=== PATIENT | female | born 1985 | race Caucasian/White ===

== ENCOUNTER → 2020-06-22 10:42 | Outpatient (CLI) | payer BC, SELFPAY ==
--- NOTE | 2020-06-22 10:51 | XR_ITS ---
PROCEDURE: XR KNEE LT 4V CLINICAL INDICATION: LT KNEE PAIN COMPARISON: No exams were available for comparison FINDINGS: No fracture or dislocation. No lytic or blastic change. There is normal mineralization. The joint spaces are well-preserved. No significant degenerative/arthritic changes. No erosive changes evident. Other findings:None. IMPRESSION: No acute findings. Dictated by: Dr. Gilles Alab MD 06/22/2020 11:57 Dr. Gilles Alba MD in [place] 06/22/2020 11:57
== END ==
PROVIDERS: PCP Family Medicine; Visit Provider Family Medicine
DX: M25.562 Pain in left knee (principal)
CPT/HCPCS: 73564

== ENCOUNTER 2021-09-10 08:24 | Emergency (ER) | payer BC, SELFPAY ==
[2021-09-10 08:25] VITALS: BP 131/81; PULSE 82; RESP 20; TEMP 37; O2SAT 94; BMI 33.3
--- NOTE | 2021-09-10 08:35 | XR_ITS ---
PROCEDURE INFORMATION: Exam: XR Chest Exam date and time: 09/10/2021 8:35 AM Age: 36 years old Clinical indication: Shortness of breath; Additional info: SOB, chest tightness TECHNIQUE: Imaging protocol: XR of the chest. Views: 2 views. COMPARISON: No relevant prior studies available. FINDINGS: Lungs: Relative lucency within the upper lung zones. Small patchy adjacent to but not obscuring the right heart border. No lobar consolidation. Pleural spaces: Unremarkable. No pleural effusion. No pneumothorax. Heart/Mediastinum: Unremarkable. Bones/joints: Unremarkable. IMPRESSION: Small patchy adjacent to but not obscuring the right heart border which is nonspecific and can be seen with prominent vasculature, mediastinal nodes, or early infiltrate.
[2021-09-10 08:49] LABS: Influenza A, PCR Not Detected (NotDetected); Influenza B, PCR Not Detected (NotDetected)
--- NOTE | 2021-09-10 08:59 | ECG_ITS ---
APPROVED REPORT Exam: Resting ECG HR:54 bpm ECG Measurements Heart Rate 54 AXES MT 176 P 50 QRSd 110 QRS 34 QT 438 T 47 QTc 415 Conclusion Sinus bradycardia with sinus arrhythmia Low voltage QRS Borderline ECG Electronically signed by : Cabrera Vallecillo MD 09/10/2021 22:14:24
[2021-09-10 09:00] VITALS: BP 148/91; PULSE 54; RESP 22; O2SAT 97
[2021-09-10 09:15] LABS: Coronavirus 19, PCR Detected (NotDetected)
--- NOTE | 2021-09-10 09:17 | [facility].EDSOB ---
ED Disposition Clinical Impression: Bronchitis due to COVID-19 virus Disposition: Home, Self-Care Condition on Discharge: Good Instructions: DI for COVID-19 (Suspected or Confirmed ) Prescriptions: Albuterol Sulfate [Albuterol Sulfate Hfa] 2 puff IH Q4HP PRN #1 each PRN Reason: Wheezing Prescription Printed methylPREDNISolone [Medrol 4mg tab] 4 mg PO DIRECTED #21 tab Prescription Printed Referrals: Cabrera Teran MD [Primary Care Provider] - - Critical Care Critical Care Time: No Attestation: On 09/10/21, the high probability of a clinically significant, sudden or life threatening deterioration of the following system(s) required my full and direct attention, intervention and personal management. The time I documented below is in addition to time spent performing reported procedures but includes the following listed in this critical care notation. Medical Decision Making - Medical Records Medical records reviewed: Yes: I reviewed the patient's medical records. - [place] Inquiry Pt receiving controlled substance: No Vital Signs: 09/10/21 08:25 Temperature 98.6 F Temperature Source Oral Pulse Rate [Radial] 82 Respiratory Rate 20 Blood Pressure [Right Arm] 131/81 Blood Pressure Mean [Right Arm] 97 Blood Pressure Position [Right Arm] Sitting 02 Sat by Pulse Oximetry 94 L Oxygen Delivery Method Room Air - Lab Data Lab Results 09/10/21 08:45: SARS-CoV-2 (PCR) Detected A, Influenza A Untype (PCR) Not detected, Influenza Type B (PCR) Not detected 09/10/21 08:54: WBC 8.6, RBC 4.39, Hgb 12.4, Hct 37.4, MCV 85.2, MCH 28.2, MCHC 33.1, RDW 13.7, Plt Count 250, MPV 8.6, Neut % (Auto) 62.4, Lymph % (Auto) 28.9, Osborne % (Auto) 3.3, Eos % (Auto) 4.6, Baso % (Auto) 0.8, Neut # (Auto) 5.4, Lymph # (Auto) 2.5, Osborne # (Auto) 0.3, Eos # (Auto) 0.4, Baso # (Auto) 0.1 09/10/21 08:54: Sodium 142, Potassium 2.9 L*, Chloride 104, Carbon Dioxide 26, Anion Gap 14.9, BUN 8, Creatinine 0.60, Estimated Creat Clear 186, Estimated GFR 113, Est GFR ( Amer) 137, Glucose 107 H, Calcium 8.7, Total Bilirubin 0.4, AST 30, ALT 21, Alkaline Phosphatase 77, Troponin I < 0.01, Total Protein 7.4, Albumin 4.5, Globulin 2.9, Albumin/Globulin Ratio 1.6 Result diagrams: 09/10/21 08:54 09/10/21 08:54 Orders (Tests/Meds): ED MEDICATIONS Discontinued Medications Generic Name Dose Route Start Last Admin Trade Name Freq PRN Reason Stop Dose Admin Albuterol/Ipratropium 3 ml 09/10/21 08:36 09/10/21 08:42 Ipratropium/Albuterol 3 Ml Neb IH 09/10/21 08:37 3 ml ONCE ONE Administration Dexamethasone Sodium Phosphate 10 mg 09/10/21 09:21 09/10/21 09:38 Dexamethasone 4mg/Ml 5ml Mdv IV 09/10/21 09:22 10 mg ONCE ONE Administration Diphenhydramine HCl 25 mg 09/10/21 08:43 09/10/21 08:45 Diphenhydramine 25mg Capsule PO 09/10/21 08:44 25 mg ONCE ONE Administration ORDERS Category Date Time Status Troponin I Q3H Lab 09/10/21 11:45 Ordered Troponin I Q3H Lab 09/10/21 14:45 Ordered - Radiology Data #1 Image(s): Chest Image Reviewed: Yes I reviewed the patient's radiology results, Yes I reviewed the patient's radiology image, Yes I have reviewed radiologist's interpretation IMPRESSION: Small patchy adjacent to but not obscuring the right heart border which is nonspecific and can be seen with prominent vasculature, mediastinal nodes, or early infiltrate. - ECG Data Tracing #1 I reviewed this ECG and interpreted as documented below: ECG initial impression date: 09/10/21 ECG initial impression time: 08:59 Arrhythmias present: sinus day - Reevaluation(s) Time: 09:52 Reevaluation #1: On reevaluation, patient is feeling better. Repeat respiratory exam does not show any distress or hypoxia. Patient was positive for coronavirus. She has vaccinated. We did offer monoclonal antibody infusion, however patient is declining at this time. She be discharged with an inhale
[2021-09-10 09:29] LABS: Basophils # 0.1 K/mm3 (0-0.2); Basophils % 0.8 % (0.1-2.0); Eosinophils # 0.4 K/mm3 (0.0-0.4); Eosinophils % 4.6 % (0.1-12.0); Hematocrit 37.4 % (37.0-47.0); Hemoglobin 12.4 g/dL (12.2-16.2); Lymphocytes # 2.5 K/mm3 (0.7-4.5); Lymphocytes % 28.9 % (10-50); Mean Corpuscular HGB Conc 33.1 g/dL (31.8-35.4); Mean Corpuscular Hemoglobin 28.2 pg (27.0-31.2); Mean Corpuscular Volume 85.2 fl (81-99); Mean Platelet Volume 8.6 fl (7.4-10.4); Monocytes # 0.3 K/mm3 (0.1-1.0); Monocytes % 3.3 % (1.7-9.3); Neutrophils # 5.4 K/mm3 (1.8-7.8); Neutrophils % 62.4 % (37.0-80.0); Platelet Count 250 K/mm3 (142-424); Red Blood Count 4.39 M/mm3 (4.20-5.40); Red Cell Distribution Width 13.7 % (11.5-17.5); White Blood Count 8.6 K/mm3 (4.8-10.8)
[2021-09-10 09:30] VITALS: BP 133/78; BP 139/95; PULSE 68; PULSE 82; RESP 20; RESP 22; O2SAT 96; O2SAT 97
[2021-09-10 09:32] LABS: Chloride 104 mmol/L (98-107); Sodium 142 mmol/L (136-145)
[2021-09-10 09:34] LABS: Blood Urea Nitrogen 8 mg/dl (7-17); Creatinine Clearance Estimated 186 mL/min (50-200); Estimated Glomerular Filt Rate 113 ml/min (>60); GFR (African American) 137 ML/MIN (>60)
[2021-09-10 09:35] LABS: Alanine Aminotransferase 21 U/L (12-78); Albumin Level 4.5 g/dl (3.5-5.0); Albumin/Globulin Ratio 1.6 (1.1-1.8); Alkaline Phosphatase 77 U/L (38-126); Aspartate Amino Transferase 30 U/L (14-36); Bilirubin,Total 0.4 mg/dl (0.2-1.3); Calcium 8.7 mg/dl (8.4-10.2); Globulin 2.9 g/dL (1.3-3.2); Glucose 107 mg/dl (74-100); Total Protein,Serum 7.4 g/dl (6.3-8.2)
[2021-09-10 09:36] LABS: Anion Gap 14.9 mEq/L (5-15); Carbon Dioxide 26 mmol/L (22.0-30.0)
[2021-09-10 09:49] LABS: Troponin I < 0.01 ng/ml (0.00-0.034)
[2021-09-10 09:50] LABS: Potassium 2.9 mmoL/L (3.5-5.1)
[2021-09-10 10:06] VITALS: BP 132/85; PULSE 81; RESP 20; TEMP 37; O2SAT 96
== END 2021-09-10 10:07 | disposition home or self-care (01) ==
PROVIDERS: Emergency Provider Emergency Medicine; PCP Family Medicine
DX: J20.9 Acute bronchitis, unspecified (principal); U07.1 COVID-19
CPT/HCPCS: 71046; 80053; 84484; 85025; 93005; 96374; 96375; 99283; C9803; U0003; U0005